=== PATIENT | male | born 1990 | race Caucasian/White ===

== ENCOUNTER 2018-10-24 06:23 | Day surgery (SDC) | payer OTHER ==
[~2018-10-24] VITALS: Ht 175.3 cm; Wt 187.1 kg
[~2018-10-24 06:23] MED LIST: PANT40 PO
--- NOTE | 2018-10-24 06:43 | NUR ---
History, Chart, Medications and Allergies reviewed before start of procedure. Patient confirms NPO status and agrees with scheduled surgery. Lungs clear T/O to Auscultation. Pre-Op teaching done. Pt verbalizes understanding. Patient States Post-Procedure ride home has been arranged. Patient reports completing Chlorhexadine shower X2 prior to admission to hospital.
--- NOTE | 2018-10-24 07:14 | NUR ---
NO JEWELRY, CONTACTS, GLASSES, OR HEARING DEVICES PRESENT AT ADMIT. TRACKER CARD EXPLAINED TO MOTHER AND OPPORTUNITY FOR QUESTIONS PROVIDED. DISCUSSED LACK OF EKG DESPITE HTN WITH DR LOJA, NO NEW ORDERS RECIEVED.
--- NOTE | 2018-10-24 07:19 | NUR ---
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
--- NOTE | 2018-10-24 07:44 | NUR ---
AFTER DISCUSSION WITH DR BROWN REGARDING ORDERS AND PCN/AMOXICILLIN ALLERGY, NEW ORDERS RECEIVED, CLINDAMYCIN 900 IV WILL BE THE ANTIBIOTIC USED.
--- NOTE | 2018-10-24 09:04 | NUR ---
Patient up to Ambulate independently. Gait steady. Dressing to procedure site clean, dry, intact with no visible drainage, swelling, erythema or bruising noted. Discharge instructions reviewed with patient. Patient verbalizes understanding. Copy given to patient to take home. Patient States Post-Procedure ride home has been arranged. Discharged via wheelchair to private car for ride home.
--- NOTE | 2018-10-25 10:15 | NUR ---
10/25/18 1015 Kaylee Bowen VERIFICATIONS: EDIT CHART.
== END 2018-10-24 08:55 | disposition home or self-care (01) ==
LOC: ORSCMMR 06:23 → ORD 07:30 → ORSCMMR 08:55
PROVIDERS: Orthopaedic Surgery
PROC: 01N50ZZ Release Median Nerve, Open Approach (ICD-10-PCS; principal; 2018-10-24 07:30)
DX: G56.01 Carpal tunnel syndrome, right upper limb (principal); G47.33 Obstructive sleep apnea (adult) (pediatric); E03.9 Hypothyroidism, unspecified; E66.01 Morbid (severe) obesity due to excess calories; Z68.44 Body mass index [BMI] 60.0-69.9, adult; K21.9 Gastro-esophageal reflux disease without esophagitis
CPT/HCPCS: J0690; J2250; J2405; J2704; J3010; J7120